=== PATIENT | male | born 2000 | race Caucasian/White ===

== ENCOUNTER 2021-01-06 17:43 | Emergency (ER) | payer OTHER ==
[~2021-01-06] VITALS: Ht 182.9 cm; Wt 56.7 kg
[2021-01-06] MEDS ORDERED: ASPIRIN 81 MG CHEW TAB PO ONE (18:00)
[2021-01-06 18:03] LABS: BASOPHILS # (AUTO) 0.1 (0.0-0.1); BASOPHILS % 0.5 % (0.0-1.0); EOSINOPHILS # (AUTO) 0.1 (0.0-0.4); EOSINOPHILS % 0.8 % (0.0-6.0); HEMATOCRIT 46.3 % (38.2-49.6); LYMPHOCYTES # (AUTO) 2.2 (1.0-3.2); LYMPHOCYTES % 22.3 % (18.0-39.1); MEAN CORPUSCULAR HEMOGLOBIN 28.2 pg (28-32); MEAN CORPUSCULAR HGB CONC 32.4 g/dL (31-35); MONOCYTES # (AUTO) 0.8 (0.2-0.8); MONOCYTES % 8.2 % (4.4-11.3); NEUTROPHILS # (AUTO) 6.7 (2.1-6.9); NEUTROPHILS % 67.9 % (38.7-80.0); PLATELET COUNT 301 x10e3/uL (140-360); RED BLOOD COUNT 5.32 x10e6/uL (4.3-5.7); RED CELL DISTRIBUTION WIDTH 12.6 % (11.7-14.4)
[2021-01-06 18:13] LABS: INR 1.07; PROTHROMBIN TIME 14.8 seconds (11.9-14.5)
[2021-01-06 18:14] LABS: PARTIAL THROMBOPLASTIN TIME 27.9 seconds (23.8-35.5)
[2021-01-06 18:23] LABS: ALBUMIN 4.4 g/dL (3.5-5.0); ALBUMIN/GLOBULIN RATIO 1.6 (0.8-2.0); ALKALINE PHOSPHATASE 151 IU/L (40-150); CALCIUM 9.2 mg/dL (8.4-10.2); CARBON DIOXIDE 25 mmol/L (22-29); CHLORIDE 99 mmol/L (98-107); CREATINE KINASE 90 IU/L (30-200); CREATININE, SERUM 1.07 mg/dL (0.72-1.25); EST GLOMERULAR FILTRATION RATE 89 ML/MIN (60-); GLUCOSE 227 mg/dL (74-118); SODIUM 135 mmol/L (136-145)
[2021-01-06 18:24] LABS: ALANINE AMINOTRANSFERASE < 6 IU/L (0-55)
[2021-01-06 18:42] LABS: BLOOD UREA NITROGEN 7 mg/dL (7-26); BUN/CREATININE RATIO 7 (6-25)
[2021-01-06] MEDS ORDERED: ULTRAM 50MG50 MG PO (19:23)
[2021-01-06] MEDS ORDERED: TRAMADOL HCL 50 MG TAB PO ONE (19:30)
[2021-01-06 19:59] VITALS: BP 135/85
== END 2021-01-06 20:03 | disposition home or self-care (01) ==
LOC: ER 17:46
DX: R07.89 Other chest pain (principal); J93.9 Pneumothorax, unspecified
CPT/HCPCS: 36415; 71045; 80053; 82550; 82553; 84484; 85025; 85379; 85610; 85730; 93005; 99284